=== PATIENT | female | born 1980 | race Caucasian/White ===

== ENCOUNTER 2016-12-04 11:44 | Inpatient (IN) | payer MEDICAID ==
[~2016-12-04] VITALS: Ht 157.5 cm; Wt 92.3 kg
[2016-12-09 15:18] VITALS: Ht 157.5 cm; Wt 92.3 kg
[2016-12-09 15:19] VITALS: BP 130/74; PULSE 77; RESP 18
[2016-12-09] MEDS ORDERED: OXYTOCIN 30 UNITS/LR 500 ML IV PRN (15:30)
[2016-12-09] MEDS ORDERED: METHYLERGONOVINE 0.2 MG INJ IM PRN (15:30)
[2016-12-09] MEDS ORDERED: BUTORPHANOL 2 MG INJ IV PRN ×2 (15:30)
[2016-12-09] MEDS ORDERED: AMPICILLIN 2 GM/NS (PMX) 100 ML IV ONE (15:30)
[2016-12-09] MEDS ORDERED: MISOPROSTOL 200 MCG TAB PR PRN (15:30)
[2016-12-09] MEDS ORDERED: CARBOPROST 250 MCG INJ IM PRN (15:30)
[2016-12-09] MEDS ORDERED: LIDOCAINE 1% (MPF) 30 ML INJ INJ PRN (15:30)
[2016-12-09] MEDS ORDERED: OXYTOCIN 30 UNITS/LR 500 ML IV SCH ×2 (15:30)
[2016-12-09] MEDS ORDERED: IBUPROFEN 600 MG TAB PO PRN (15:30)
[2016-12-09 15:34] LABS: BASOPHILS % 0.3 % (0.0-2.0); EOSINOPHILS % 0.4 % (0.0-7.0); HEMATOCRIT 38.8 % (37.0-47.0); LYMPHOCYTES # 2.1 10^3/ul (0.8-2.9); LYMPHOCYTES % 20.4 % (15.0-51.0); MEAN CORPUSCULAR HEMOGLOBIN 30.9 pg (29.0-33.0); MEAN CORPUSCULAR HGB CONC 33.5 g/dl (32.0-37.0); MEAN CORPUSCULAR VOLUME 92.1 fl (82.0-101.0); MEAN PLATELET VOLUME 9.8 fl (7.4-10.4); MONOCYTE # 0.4 10^3/ul (0.3-0.9); MONOCYTES % 4.1 % (0.0-11.0); NEUTROPHIL # 7.6 10^3/ul (1.6-7.5); NEUTROPHILS % 74.8 % (39.0-77.0); PLATELET COUNT 220 10^3/UL (140-440); RED BLOOD COUNT 4.21 10^6/ul (4.20-5.40); RED CELL DISTRIBUTION WIDTH 14.4 % (11.5-14.5); UNCORRECTED WBC 10.1 10^3/ul (4.8-10.8); WHITE BLOOD COUNT 10.1 10^3/ul (4.8-10.8)
[2016-12-09 15:37] LABS: CONDITION 1
[2016-12-09 15:41] LABS: PROTIME 13.2 Sec (12.2-14.2)
[2016-12-09 15:42] LABS: ALBUMIN 3.4 g/dl (3.3-4.9)
[2016-12-09 15:44] LABS: ALBUMIN 3.4 g/dl (3.3-4.9)
[2016-12-09 15:45] LABS: BILIRUBIN,INDIRECT 0.1 mg/dl (0-1.1); BILIRUBIN,TOTAL 0.1 mg/dl (0.2-1.3); TOTAL PROTEIN 6.7 g/dl (6.1-8.1)
[2016-12-09 15:46] LABS: BILIRUBIN,INDIRECT 0.1 mg/dl (0-1.1); CREATININE 0.5 mg/dl (0.44-1.00)
[2016-12-09 15:47] LABS: ALBUMIN/GLOBULIN RATIO 1.03; BILIRUBIN,TOTAL 0.1 mg/dl (0.2-1.3); TOTAL PROTEIN 6.7 g/dl (6.1-8.1)
[2016-12-09] MEDS ORDERED: LACTATED RINGER'S 1,000 ML IV PRN (16:00)
[2016-12-09] MEDS: LACTATED RINGER'S 1,000 ML IV SCH ×2 (16:19→22:14)
[2016-12-09 16:38] LABS: ADD UMIC YES; URINE BILIRUBIN (Dip) NEGATIVE (NEGATIVE); URINE BLOOD (Dip) 2+ (NEGATIVE); URINE COLOR LT. YELLOW (YELLOW); URINE GLUCOSE (Dip) NEGATIVE (NEGATIVE); URINE KETONES (Dip) 40 (NEGATIVE); URINE LEUKOCYTE ESTERASE (Dip) NEGATIVE (NEGATIVE); URINE NITRITE (Dip) NEGATIVE (NEGATIVE); URINE TOTAL PROTEIN (Dip) NEGATIVE (NEGATIVE); URINE UROBILINOGEN (Dip) 0.2 E.U./dL (0.1-1.0)
[2016-12-09 17:42] LABS: BACTERIA,URINE FEW; SQUAMOUS EPITHELIAL CELL,UR MODERATE
[2016-12-09] MEDS: AMPICILLIN 1 GM/NS (PMX) 50 ML IV SCH ×2 (19:24→23:30)
--- NOTE | 2016-12-10 00:21 | LDN ---
Date/Time of Note Date/Time of Note DATE: 12/10/16 TIME: 00:17 Delivery Summary Pt pushed to a precipitous of a liveborn 3435g female infant with Apgars of 9/9 over a sterile field without anesthesia. Easy delivery of the head. The anterior and posterior shoulders followed as did the remainder of the body. The infant was placed on mother's abdomen, the cord was doubly clamped and cut by FOB after 30 sec of delay with cord milking. Pt received standard IV pitocin. Cord blood was obtained. An intact 3VC placenta spontaneously delivered shortly thereafter. Fundal massage revealed a firm fundus. A small first degree perineal laceration was noted on inspection of the vagina and perineum. The laceration was repaired in the usual fashion using 3-0 Chromic suture with local anesthetic. The patient and are recovering well in LDR. Placenta Delivered: Spontaneously Meconium: none Perineum intact?: No Perineal laceration: 1 Anesthesia type: Local Estimated blood loss: 200 Sponge & Needle done & correct: Yes All needle counts correct: Yes Any foreign bodies felt in the: No Problems: Delivery Information Sex Sex: female Apgars 1 Minute: 9 5 Minute: 9 Suctioning Nose & mouth suctioned at vivek: No Delee suction performed: No Umbilical Cord Umbilical cord with: 3 Vessels Cord presentations: no nuchal cord Cord Blood was obtained: Yes Mother & Baby Disposition Disposition Mom & Baby to Maternity; Good: Yes Baby to NICU: No TARIK CASTRO MD Dec 10, 2016 00:21
[2016-12-10] MEDS ORDERED: ONDANSETRON 4 MG INJ IV PRN (00:30)
[2016-12-10] MEDS ORDERED: METHYLERGONOVINE 0.2 MG INJ IM PRN (00:30)
[2016-12-10] MEDS ORDERED: OXYTOCIN 30 UNITS/LR 500 ML IV PRN (00:30)
[2016-12-10] MEDS ORDERED: LANOLIN 7 GM TUBE TOP PRN (00:30)
[2016-12-10] MEDS ORDERED: DIBUCAINE 1% 30 GM OINT PR PRN (00:30)
[2016-12-10] MEDS ORDERED: SENNA/DOCUSATE NA (8.6MG/50MG) TAB PO PRN (00:30)
[2016-12-10] MEDS ORDERED: CARBOPROST 250 MCG INJ IM PRN (00:30)
[2016-12-10] MEDS ORDERED: DIPHENHYDRAMINE 50 MG INJ IV PRN (00:30)
[2016-12-10] MEDS ORDERED: MISOPROSTOL 200 MCG TAB PR PRN (00:30)
[2016-12-10] MEDS ORDERED: BENZOCAINE 20% 56 ML SPRAY TOP PRN (00:30)
[2016-12-10 00:45] VITALS: BP 134/83; PULSE 70; RESP 19
[2016-12-10] MEDS: LACTATED RINGER'S 1,000 ML IV* SCH ×3 (02:57→16:15)
[2016-12-10] MEDS: ACETAMINOPHEN 325 MG TAB PO PRN (03:07)
[2016-12-10 04:05] VITALS: BP 135/77; PULSE 73; RESP 19
[2016-12-10] MEDS: IBUPROFEN 600 MG TAB PO SCH ×4 (05:40→23:53)
[2016-12-10 07:45] VITALS: BP 122/73; PULSE 66; RESP 18
[2016-12-10 07:53] LABS: BASOPHILS % 0.3 % (0.0-2.0); EOSINOPHILS % 0.1 % (0.0-7.0); HEMATOCRIT 35.3 % (37.0-47.0); HEMOGLOBIN 11.9 g/dl (12.0-16.0); LYMPHOCYTES # 1.8 10^3/ul (0.8-2.9); LYMPHOCYTES % 14.6 % (15.0-51.0); MEAN CORPUSCULAR HEMOGLOBIN 31.3 pg (29.0-33.0); MEAN CORPUSCULAR HGB CONC 33.8 g/dl (32.0-37.0); MEAN CORPUSCULAR VOLUME 92.4 fl (82.0-101.0); MEAN PLATELET VOLUME 9.4 fl (7.4-10.4); MONOCYTE # 0.4 10^3/ul (0.3-0.9); MONOCYTES % 3.6 % (0.0-11.0); NEUTROPHIL # 10.1 10^3/ul (1.6-7.5); NEUTROPHILS % 81.4 % (39.0-77.0); PLATELET COUNT 207 10^3/UL (140-440); RED BLOOD COUNT 3.82 10^6/ul (4.20-5.40); RED CELL DISTRIBUTION WIDTH 14.3 % (11.5-14.5); UNCORRECTED WBC 12.4 10^3/ul (4.8-10.8); WHITE BLOOD COUNT 12.4 10^3/ul (4.8-10.8)
[2016-12-10 07:58] LABS: CONDITION 1
[2016-12-10 12:00] VITALS: BP 115/62; PULSE 70; RESP 18
[2016-12-10 16:00] VITALS: BP 118/75; PULSE 69; RESP 18
[2016-12-10] MEDS ORDERED: INFLUENZA VIRUS VACCINE 0.5 ML (DISPENSING) IM* ONE (17:00)
[2016-12-10 20:05] VITALS: BP 129/82; PULSE 79; RESP 18
[2016-12-10] MEDS ORDERED: DIPHENHYDRAMINE 25 MG CAP PO PRN (21:30)
[2016-12-11] MEDS: LACTATED RINGER'S 1,000 ML IV* SCH ×2 (00:15→08:15)
[2016-12-11] MEDS: ACETAMINOPHEN 325 MG TAB PO PRN (03:32)
[2016-12-11 04:15] VITALS: BP 129/82; PULSE 67; RESP 19
[2016-12-11] MEDS: IBUPROFEN 600 MG TAB PO SCH ×2 (05:41→12:13)
[2016-12-11 08:00] VITALS: BP 112/75; PULSE 64; RESP 18
[2016-12-11] MEDS ORDERED: INFLUENZA VIRUS VACCINE 0.5 ML (DISPENSING) IM* ONE (09:00)
--- NOTE | 2016-12-11 11:39 | PD.PPDC ---
SMELLER Discharge Instruction Condition Patient Condition: Good Diet Diet: Resume Regular Diet Activity/Restrictions Activity: Normal Activity May Shower Restrictions: No Exercising No Lifting No Driving No Sexual Activity Nothing in the Vagina No [place] No Tampons, douche Follow-up Follow-up with Physician: 2, Week/Weeks Return to clinic for [facility] Instructions: Fever greater than 101 Worsening abdominal pain More than 2 pads per hour OB Instructions: Breast Tenderness Blurried Vision Headache SANDRITA KAY MD Dec 11, 2016 11:39
--- NOTE | 2016-12-11 11:41 | DS ---
Date/Time of Note Date/Time of Note DATE: 12/11/16 TIME: 11:40 Obstetrical Discharge Record Final Diagnosis Final Diagnosis: Term delivered Vaginal Delivery Obstetrical Delivery: Spontaneous Condition on Discharge Physical Assessment Last Vitals: day 2 Afebrile, vital sign stable, abdomen soft uterus firm lochia normal extremity normal, patient discharged home with recommendation for follow-up in 2 weeks at the clinic. Voiding: Yes Bowel Movement: Yes Breast: Soft, non-tender, Filling Fundus: Firm Calf Tenderness: No Patient Condition: Good SANDRITA KAY MD Dec 11, 2016 11:41
[2016-12-12] MEDS ORDERED: DIPHTH/TET/ACEL PERTUSS (ADULT) 0.5 ML VIAL IM* ONE (09:00)
== END 2016-12-11 14:05 | disposition home or self-care (01) | DRG 775 ==
LOC: EDSTATUS 14:04 → L-D 12-09 14:08 → PP1 12-10 00:45
PROVIDERS: ADMIT Obstetrics & Gynecology; ATTEND Obstetrics & Gynecology
PROC: 10E0XZZ Delivery of Products of Conception, External Approach (ICD-10-PCS; principal; 2016-12-10)
PROC: 0HQ9XZZ Repair Perineum Skin, External Approach (ICD-10-PCS; 2016-12-10)
DX: O70.0 First degree perineal laceration during delivery (principal); Z37.0 Single live birth; Z3A.00 Weeks of gestation of pregnancy not specified
CPT/HCPCS: 80053; 80076; 81001; 81003; 84560; 85025; 85384; 85610; 85730; 86592; 86900; 86901; 90686; 90715; J0290; J2590; J7120